=== PATIENT | female | born 1995 | race African-American/Black ===

== ENCOUNTER 2017-05-14 21:58 | Emergency (ER) | payer OTHER ==
[~2017-05-14] VITALS: Ht 152.4 cm; Wt 41.7 kg
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
--- NOTE | 2017-05-14 23:45 | NUR ---
DIMITRY GOMEZ BED SIDE EVAL
--- NOTE | 2017-05-15 00:13 | NUR ---
Patient discharged to home in stable condition. Written and verbal after care instructions given. Patient verbalizes understanding of instruction.
[2017-05-15 00:15] VITALS: BP 125/70
== END 2017-05-15 00:18 | disposition home or self-care (01) ==
LOC: ER 22:04
DX: S60.221A Contusion of right hand, initial encounter (principal); W51.XXXA Accidental striking against or bumped into by another person, initial encounter; Y93.89 Activity, other specified; Y92.89 Other specified places as the place of occurrence of the external cause; Y99.8 Other external cause status
CPT/HCPCS: 73130; 99284; A4606; Z7610